=== PATIENT | male | born 1985 | race Caucasian/White ===

== ENCOUNTER 2016-05-28 17:54 | Emergency (ER) | payer BC ==
[~2016-05-28] VITALS: Ht 188 cm; Wt 129.6 kg
[~2016-05-28 17:54] MED LIST: DEPA500T3 PO; DIVA500T8 PO; LEVE500 PO; LORA-474 PO
[2016-05-28 17:56] VITALS: BP 143/80; PULSE 86; RESP 20; TEMP 98.3; O2SAT 93
[2016-05-28 21:39] VITALS: BP 147/74; PULSE 74; RESP 18; O2SAT 96
[2016-05-28] MEDS ORDERED: ONDANSETRON HCL 4 MG/2 ML VIAL IV PUSH ONE (21:45)
[2016-05-28] MEDS ORDERED: SODIUM CHLORIDE 0.9% FLUSH 5 ML FLUSH IVF PRN (21:45)
[2016-05-28] MEDS ORDERED: MORPHINE SULFATE 4 MG/ML INJ IV PUSH ONE (21:45)
[2016-05-28] MEDS ORDERED: SODIUM CHLOR 0.9% 1000 ML INJ 1,000 ML IV ONE (21:45)
[2016-05-28] MEDS ORDERED: DIVA500T PO ×2 (21:50)
[2016-05-28] MEDS ORDERED: LEVE750T8 PO (21:50)
--- NOTE | 2016-05-28 21:50 | PD ---
HPI Chief Complaint: Seizure Time Seen by Provider: 21:45 Travel History International Travel<30 days: No Contact w/Intl Traveler<30days: No Traveled to known affect area: No History of Present Illness HPI Patient comes in for evaluation of seizure that occurred around noon today. Patient states he was getting out of the shower drying off when the seizure occurred. Patient has a history of epilepsy and is on his medication which he reports he takes regularly. Patient has not had a seizure almost a year. Patient is uncertain exactly what all he hit when he fell having a seizure but denies breaking anything in the bathroom. He states after seizure was over and he came back to normal he was having a headache and left shoulder pain. Patient states he took Tylenol for this and tried resting with no improvement of his symptoms. Patient decided to come to the emergency department for further treatment and evaluation. Patient denies any chest pain, shortness of breath, nausea, vomiting, abdominal pain, being unable tenderness, numbness or tingling anywhere, or known fevers. Patient states the shoulder pain is worse with certain movement, coughing, and deep inspiration. Denies anything making the headache better or worse. PFSH Past Medical History Seizures: Yes Past Surgical History Appendectomy: Yes Other Surgery: Yes (WISDOM TEETH) Social History Alcohol Use: Yes (QUIT 2011) Tobacco Use: Yes (1-2 CIGARETTES OCCASIONAL, DIPS ) Substance Use: Yes (MARIJUANA COUPLE OF TIMES A WEEK) Allergies-Medications (Allergen,Severity, Reaction): Coded Allergies: Sulfa (Verified Allergy, Severe, Rash, 05/28/16) Doxycycline (Verified Adverse Reaction, Severe, Seizures, 05/28/16) PT DENIES Reported Meds & Prescriptions Reported Meds & Active Scripts Active Reported Levetiracetam 750 Mg Tab 750 Mg PO BID Divalproex DR (Divalproex Sodium) 500 Mg Tabdr 1,000 Mg PO HS Divalproex DR (Divalproex Sodium) 500 Mg Tabdr 500 Mg PO DAILY Review of Systems Except as stated in HPI: all other systems reviewed are Neg Physical Exam Narrative GENERAL: Well-developed, overly nourished, in no acute distress, and non-ill appearing. SKIN: Warm and dry. Ecchymosis noted over right lateral rib cage as well as posterior right elbow. HEAD: Atraumatic. Normocephalic. EYES: Pupils equal and round. EOMI. No scleral icterus. No injection or drainage. ENT: No nasal bleeding or discharge. Mucous membranes pink and moist. NECK: Trachea midline. No no midline tenderness or crepitus over the cervical spine. Supple. No nuclear rigidity. CARDIOVASCULAR: Regular rate and rhythm. No murmur appreciated. RESPIRATORY: No accessory muscle use. No respiratory distress. Clear to auscultation. Breath sounds equal bilaterally. Patient reports tenderness to palpation over right lateral rib cage midaxilla approximately ribs 8 and 9. There is no crepitus or step-off. GASTROINTESTINAL: Abdomen soft, non-tender, nondistended. Hepatic and splenic margins not palpable. No pulsatile mass. MUSCULOSKELETAL: No obvious deformities. No clubbing. No cyanosis. No edema. Decreased range of motion left shoulder secondary to pain. Shoulder: Sensation equal BL deltoid muscles. Pulses equal BL distal to injury. Capillary refill less than 2 seconds distal to injury and equal BL. FROM distal to injury and equal BL. Strength distal to injury equal BL. NV intact distal to injury equal BL. Flexion and extension of thumb equal BL. Equal strength and movement with abduction/adductions of BL fingers. Rn Training strength equal BL. Patient reports tenderness to palpation over left anterior shoulder that is worse with certain movement passively and actively. Patient reports minimal tenderness posterior elbow over area of ecchymosis. NEUROLOGICAL: Awake and alert. No obvious cranial nerve deficits. Motor grossly within normal limits. Normal speech. PSYCHIATRIC: Appropriate mood and affect; insight and judgment normal. Data Data Last Documented VS Vital Signs Date Time Temp Pulse Resp B/P Pulse Ox O2 Delivery O2 Flow Rate FiO2 05/28/16 21:39 74 18 147/74 96 Room Air 05/28/16 17:56 98.3 Orders Complete Blood Count With Diff (05/28/16 21:38) Basic Metabolic Panel (Bmp) (05/28/16 21:38) Valproic Acid (Depakene) (05/28/16 21:38) Ct Brain W/O Iv Contrast(Rout) (05/28/16 ) Ecg Monitoring (05/28/16 21:38) Iv Access Insert/Monitor (05/28/16 21:38) Oximetry (05/28/16 21:38) Sodium Chloride 0.9% Flush (Ns Flush) (05/28/16 21:45) Ct Cerv Spine W/O Contrast (05/28/16 ) Shoulder, Complete (>2vws) (05/28/16 ) Ribs, Uni (W/Exp Cxr-Min 3vw) (05/28/16 ) Elbow, Complete (4 Vws) (05/28/16 ) Act Partial Throm Time (Ptt) (05/28/16 21:38) Prothrombin Time / Inr (Pt) (05/28/16 21:38) Ondansetron Inj (Zofran Inj) (05/28/16 21:45) Morphine Inj (Morphine Inj) (05/28/16 21:45) Sodium Chlor 0.9% 1000 Ml Inj (Ns 1000 M (05/28/16 21:45) Labs Laboratory Tests Test 05/28/16 22:40 White Blood Count 11.6 TH/MM3 Red Blood Count 4.53 MIL/MM3 Hemoglobin 14.4 GM/DL Hematocrit 41.6 % Mean Corpuscular Volume 91.7 FL Mean Corpuscular Hemoglobin 31.8 PG Mean Corpuscular Hemoglobin 34.7 % Concent Red Cell Distribution Width 13.0 % Platelet Count 242 TH/MM3 Mean Platelet Volume 8.5 FL Neutrophils (%) (Auto) 61.9 % Lymphocytes (%) (Auto) 25.6 % Monocytes (%) (Auto) 12.0 % Eosinophils (%) (Auto) 0.4 % Basophils (%) (Auto) 0.1 % Neutrophils # (Auto) 7.2 TH/MM3 Lymphocytes # (Auto) 3.0 TH/MM3 Monocytes # (Auto) 1.4 TH/MM3 Eosinophils # (Auto) 0.0 TH/MM3 Basophils # (Auto) 0.0 TH/MM3 CBC Comment DIFF FINAL Differential Comment MDM Medical Decision Making Medical Screen Exam Complete: Yes Emergency Medical Condition: Yes Differential Diagnosis Fracture, dislocation, strain, contusion, intracranial hemorrhage, pneumothorax , subtherapeutic Depakote, other Narrative Course Patient was seen and examined. Initial laboratory radiology studies were ordered. Patient signed out to Dr. Son. Please see her documentation for final diagnosis and disposition. Lucio Melo May 28, 2016 21:49
--- NOTE | 2016-05-28 22:57 | RADRPT ---
EXAM DATE/TIME: 05/28/2016 21:52 [facility] COMPARISON: No previous studies available for comparison. INDICATIONS : Siezure and fall. Left shoulder pain. MEDICAL HISTORY : Epillepsy. Siezures. SURGICAL HISTORY : None. ENCOUNTER: Initial ACUITY: 1 day PAIN SCORE: 9/10 LOCATION: Left shoulder FINDINGS: Multiple view examination of the left shoulder demonstrates no evidence of fracture or dislocation. The glenohumeral and acromioclavicular joints are maintained. There is normal range of motion betwee n internal and external rotation. Bony mineralization is normal. CONCLUSION: Normal examination for a patient of this age. Troy Ledezma MD on May 28, 2016 at 22:54 Board Certified Radiologist. This report was verified electronically.
--- NOTE | 2016-05-28 22:58 | RADRPT ---
EXAM DATE/TIME: 05/28/2016 22:00 [facility] COMPARISON: No previous studies available for comparison. INDICATIONS : Siezure and fall. Right lower rib pain. MEDICAL HISTORY : Epillepsy. Siezures. SURGICAL HISTORY : None. ENCOUNTER: Initial ACUITY: 1 day PAIN SCORE: 9/10 LOCATION: Right ribs, lower FINDINGS: Multiple views of the right ribs were performed. There is no evidence of displaced fracture. No elkin tructive lesions or areas of periosteal thickening are seen. Expiratory view of the chest is negativ e for pneumothorax. The mediastinal structures are midline. CONCLUSION: Normal examination for a patient of this age. Troy Ledezma MD on May 28, 2016 at 22:55 Board Certified Radiologist. This report was verified electronically.
[2016-05-28 22:59] LABS: AUTOMATED NEUTROPHIL # 7.2 TH/MM3 (1.8-7.7); BASOPHIL % 0.1 % (0.0-2.0); EOSINOPHIL % 0.4 % (0.0-4.0); HEMATOCRIT 41.6 % (39.0-51.0); HEMO FLAGS DIFF FINAL; LYMPH % 25.6 % (9.0-44.0); MEAN CELL VOLUME 91.7 FL (80.0-100.0); MEAN CORPUSCULAR HEMOGLOBIN 31.8 PG (27.0-34.0); MEAN CORPUSCULAR HGB CONC 34.7 % (32.0-36.0); NEUT % 61.9 % (16.0-70.0); PLATELET COUNT 242 TH/MM3 (150-450); RED BLOOD COUNT 4.53 MIL/MM3 (4.50-5.90); WHITE BLOOD COUNT 11.6 TH/MM3 (4.0-11.0)
--- NOTE | 2016-05-28 23:02 | RADRPT ---
EXAM DATE/TIME: 05/28/2016 22:09 [facility] COMPARISON: No previous studies available for comparison. INDICATIONS : Siezure and fall. Right elbow pain. MEDICAL HISTORY : Epillepsy. Siezures. SURGICAL HISTORY : None. ENCOUNTER: Initial ACUITY: 1 day PAIN SCORE: 7/10 LOCATION: Right elbow FINDINGS: Multiple view examination of the right elbow demonstrates no soft tissue swelling, joint effusion, or fracture. The osseous structures are in normal alignment. Bony mineralization is normal. CONCLUSION: Normal examination for a patient of this age. Troy Ledezma MD on May 28, 2016 at 22:59 Board Certified Radiologist. This report was verified electronically.
[2016-05-28 23:04] LABS: APTT (PATIENT) 28.6 SEC (24.3-30.1); INTERNATIONAL NORMALIZED RATIO 0.9 RATIO; PROTHROMBIN TIME - PATIENT 9.9 SEC (9.8-11.6)
[2016-05-28 23:05] LABS: BICARBONATE 26.7 MEQ/L (21.0-32.0); POTASSIUM 3.8 MEQ/L (3.5-5.1)
--- NOTE | 2016-05-28 23:06 | PD ---
Data Data Last Documented VS Vital Signs Date Time Temp Pulse Resp B/P Pulse Ox O2 Delivery O2 Flow Rate FiO2 05/28/16 21:39 74 18 147/74 96 Room Air 05/28/16 17:56 98.3 Orders Complete Blood Count With Diff (05/28/16 21:38) Basic Metabolic Panel (Bmp) (05/28/16 21:38) Valproic Acid (Depakene) (05/28/16 21:38) Ct Brain W/O Iv Contrast(Rout) (05/28/16 ) Ecg Monitoring (05/28/16 21:38) Iv Access Insert/Monitor (05/28/16 21:38) Oximetry (05/28/16 21:38) Sodium Chloride 0.9% Flush (Ns Flush) (05/28/16 21:45) Ct Cerv Spine W/O Contrast (05/28/16 ) Shoulder, Complete (>2vws) (05/28/16 ) Ribs, Uni (W/Exp Cxr-Min 3vw) (05/28/16 ) Elbow, Complete (4 Vws) (05/28/16 ) Act Partial Throm Time (Ptt) (05/28/16 21:38) Prothrombin Time / Inr (Pt) (05/28/16 21:38) Ondansetron Inj (Zofran Inj) (05/28/16 21:45) Morphine Inj (Morphine Inj) (05/28/16 21:45) Sodium Chlor 0.9% 1000 Ml Inj (Ns 1000 M (05/28/16 21:45) Labs Laboratory Tests Test 05/28/16 22:40 White Blood Count 11.6 TH/MM3 Red Blood Count 4.53 MIL/MM3 Hemoglobin 14.4 GM/DL Hematocrit 41.6 % Mean Corpuscular Volume 91.7 FL Mean Corpuscular Hemoglobin 31.8 PG Mean Corpuscular Hemoglobin 34.7 % Concent Red Cell Distribution Width 13.0 % Platelet Count 242 TH/MM3 Mean Platelet Volume 8.5 FL Neutrophils (%) (Auto) 61.9 % Lymphocytes (%) (Auto) 25.6 % Monocytes (%) (Auto) 12.0 % Eosinophils (%) (Auto) 0.4 % Basophils (%) (Auto) 0.1 % Neutrophils # (Auto) 7.2 TH/MM3 Lymphocytes # (Auto) 3.0 TH/MM3 Monocytes # (Auto) 1.4 TH/MM3 Eosinophils # (Auto) 0.0 TH/MM3 Basophils # (Auto) 0.0 TH/MM3 CBC Comment DIFF FINAL Differential Comment Prothrombin Time 9.9 SEC Prothromb Time International 0.9 RATIO Ratio Activated Partial 28.6 SEC Thromboplast Time Sodium Level 139 MEQ/L Potassium Level 3.8 MEQ/L Chloride Level 103 MEQ/L Carbon Dioxide Level 26.7 MEQ/L Anion Gap 9 MEQ/L Blood Urea Nitrogen 14 MG/DL Creatinine 1.12 MG/DL Estimat Glomerular Filtration 76 ML/MIN Rate Random Glucose 100 MG/DL Calcium Level 8.6 MG/DL Valproic Acid (Depakene) Level 43 MCG/ML MDM Medical Record Reviewed: Yes Supervised Visit with LADARIUS: No Interpretation(s) Last Impressions Shoulder X-Ray 05/28/16 0000 Signed Impressions: Service Date/Time: Saturday, May 28, 2016 21:52 - CONCLUSION: Normal examination for a patient of this age. Troy Ledezma MD Ribs X-Ray 05/28/16 0000 Signed Impressions: Service Date/Time: Saturday, May 28, 2016 22:00 - CONCLUSION: Normal examination for a patient of this age. Troy Ledezma MD Head CT 05/28/16 0000 Signed Impressions: Service Date/Time: Saturday, May 28, 2016 22:18 - CONCLUSION: Normal examination for a patient of this age. Troy Ledezma MD Elbow X-Ray 05/28/16 0000 Signed Impressions: Service Date/Time: Saturday, May 28, 2016 22:09 - CONCLUSION: Normal examination for a patient of this age. Troy Ledezma MD Cervical Spine CT 05/28/16 0000 Signed Impressions: Service Date/Time: Saturday, May 28, 2016 22:18 - CONCLUSION: 1. No acute findings. No canal stenosis. Troy Ledezma MD Differential Diagnosis Left shoulder fracture, versus dislocation, versus rotator cuff injury, versus contusion, versus rib fracture, versus pneumothorax, versus pulmonary contusion , versus intracranial abnormality, versus cervical spine injury Narrative Course During the course of the patients emergency department visit, the patients history, examination, and differential diagnosis were reviewed with the patient. The patient had IV access obtained and blood work sent for analysis. The patient was placed on a sweep molder with oximetry and blood pressure monitoring. The patient's case was checked out to me by Lucio, pending laboratory studies and imaging studies at the conclusion of his shift. Please see his complete history and physical. The patient reportedly had a history of a seizure earlier today. He reports that he has been compliant with his medication regimen. The patient reported having left shoulder pain, right- sided rib pain and elbow pain. The patient was provided morphine for pain, Zofran for nausea, normal saline 1 L IV fluid bolus was administered. The patients laboratory studies were reviewed and remarkable for a white count of 11.6, hemoglobin 14.4, platelets 242 with 12. Basic metabolic profile is unremarkable, PT PTT unremarkable. Valproic acid level is 43, slightly subtherapeutic. On further questioning the patient reports that he may have missed a dose yesterday morning. The patient was instructed to take his usual dose of medication this evening. Radiology studies were reviewed and remarkable for a shoulder x-ray that shows no acute abnormality, no fracture or dislocation. Rib films showed no evidence of fracture. No pneumothorax or pulmonary contusion. Right elbow x-ray reveals no acute abnormality. CT scan of the head and neck showed no acute abnormality. The patient's results were discussed with him. The patient reports continued discomfort in the left shoulder. The patient was given ibuprofen 600 mg by mouth 1. He was placed in a left shoulder sling. The patient on examination has pain with any attempt at abduction of the left shoulder. We discussed the possibility that the patient has an injury to his rotator cuff. He was instructed regarding the importance of close follow-up with his primary care physician as he will likely need physical therapy and possibly a referral to an orthopedic physician for additional evaluation. The patient was placed on a left shoulder sling The patient is resting comfortably and feels better, is alert and in no distress. The patients results and examination findings were discussed with the patient. The repeat examination is unremarkable and benign. The history, exam, diagnostic testing, and current condition do not suggest any significant pathology to warrant further testing, continued ED treatment, admission, or surgical evaluation at this point. The vital signs have been stable. The patient does not have uncontrollable pain, intractable vomiting, or other significant symptoms. The patient's condition is stable and appropriate for discharge. The patient will pursue further outpatient evaluation with a primary care physician or other designated or consulting physician as indicated in the discharge instructions. The patient expressed understanding and was agreeable with this plan. Diagnosis Primary Impression: Seizure disorder Additional Impressions: Contusion Qualified Code: S20.20XA - Contusion of thoracic wall, unspecified area of thoracic wall, initial encounter Left shoulder pain Qualified Code: M25.512 - Acute pain of left shoulder Referrals: Neurologist 1 week Primary Care Physician 3 days Patient Instructions: Contusion in Adults (ED), Epilepsy (ED), General Instructions, Shoulder Pain (ED) Additional Instruction: Take ibuprofen or Tylenol as needed for discomfort as written on the package. Continue to ice the areas of discomfort and swelling for 15 minutes 3-4 times per day. Med/Other Pt SpecificInfo: No Change to Meds Disposition: 01 DISCHARGE HOME Condition: Stable Cha Son MD May 28, 2016 23:06
--- NOTE | 2016-05-28 23:15 | RADRPT ---
EXAM DATE/TIME: 05/28/2016 22:18 [facility] COMPARISON: No previous studies available for comparison. INDICATIONS : Seizure with fall. Neck pain. RADIATION DOSE: 30.38 CTDIvol (mGy) MEDICAL HISTORY : Seizures. SURGICAL HISTORY : None. ENCOUNTER: Initial ACUITY: 1 day PAIN SCALE: 5/10 LOCATION: neck TECHNIQUE: Volumetric scanning of the cervical spine was performed. Multiplanar reconstructions in the sagittal, coronal and oblique axial planes were performed. Using automated exposure control and adjustment o f the mA and/or kV according to patient size, radiation dose was kept as low as reasonably achievable to obtain optimal diagnostic quality images. FINDINGS: VERTEBRAE: Normal vertebral body height. ALIGNMENT: No evidence of subluxation. C2-C3: The bony spinal canal is normal in size. No evidence of disc bulge or herniation. The neural forami na are bilaterally patent. C3-C4: The bony spinal canal is normal in size. No evidence of disc bulge or herniation. The neural forami na are bilaterally patent. C4-C5: The bony spinal canal is normal in size. No evidence of disc bulge or herniation. The neural forami na are bilaterally patent. C5-C6: The bony spinal canal is normal in size. No evidence of disc bulge or herniation. The neural forami na are bilaterally patent. C6-C7: The bony spinal canal is normal in size. No evidence of disc bulge or herniation. The neural forami na are bilaterally patent. C7-T1: The bony spinal canal is normal in size. No evidence of disc bulge or herniation. The neural forami na are bilaterally patent. CONCLUSION: 1. No acute findings. No canal stenosis. Troy Ledezma MD on May 28, 2016 at 23:12 Board Certified Radiologist. This report was verified electronically.
--- NOTE | 2016-05-28 23:16 | RADRPT ---
EXAM DATE/TIME: 05/28/2016 22:18 [facility] COMPARISON: CT BRAIN W/O CONTRAST, May 23, 2013, 16:27. INDICATIONS : Seizure with fall. Contusion right side of head. RADIATION DOSE: 43.38 CTDIvol (mGy) MEDICAL HISTORY : Seizures. SURGICAL HISTORY : None. ENCOUNTER: Initial ACUITY: 1 day PAIN SCALE: 7/10 LOCATION: Right cranial TECHNIQUE: Multiple contiguous axial images were obtained of the head. Using automated exposure control and adj ustment of the mA and/or kV according to patient size, radiation dose was kept as low as reasonably a chievable to obtain optimal diagnostic quality images. FINDINGS: CEREBRUM: The ventricles are normal for age. No evidence of midline shift, mass lesion, hemorrhage or acute in farction. No extra-axial fluid collections are seen. POSTERIOR FOSSA: The cerebellum and brainstem are intact. The 4th ventricle is midline. The cerebellopontine angle i s unremarkable. EXTRACRANIAL: The visualized portion of the orbits is intact. SKULL: The calvaria is intact. No evidence of skull fracture. CONCLUSION: Normal examination for a patient of this age. Troy Ledezma MD on May 28, 2016 at 23:14 Board Certified Radiologist. This report was verified electronically.
[2016-05-28] MEDS ORDERED: IBUPROFEN 600 MG TAB PO ONE (23:45)
[2016-05-28 23:57] VITALS: BP 137/79
== END 2016-05-29 00:18 | disposition home or self-care (01) ==
LOC: NEPC 17:54
DX: G40.909 Epilepsy, unspecified, not intractable, without status epilepticus (principal); S20.211A Contusion of right front wall of thorax, initial encounter; M25.512 Pain in left shoulder; M25.521 Pain in right elbow; Z72.0 Tobacco use; R89.2 Abnormal level of other drugs, medicaments and biological substances in specimens from other organs, systems and tissues; W18.2XXA Fall in (into) shower or empty bathtub, initial encounter; Y93.E1 Activity, personal bathing and showering; Y92.002 Bathroom of unspecified non-institutional (private) residence as the place of occurrence of the external cause; Y99.8 Other external cause status
CPT/HCPCS: 70450; 71101; 72125; 73030; 73080; 80048; 80164; 85025; 85610; 85730; 96374; 96375; 99284; J2270; J2405; J7030